=== PATIENT | male | born 1965 | race African-American/Black ===

== ENCOUNTER → 2016-09-01 | Outpatient (CLI) | payer BC | END | disposition home or self-care (01) | LOC: RADMRIMAIN 09:37 | PROVIDERS: ATTEND Psychiatry & Neurology Neurology | DX: Z53.9 Procedure and treatment not carried out, unspecified reason (principal) ==

== ENCOUNTER → 2016-10-04 | Outpatient (CLI) | payer BC ==
--- NOTE | 2016-10-04 10:21 | MR ---
EXAMINATION TYPE: MR lumbar spine wo con DATE OF EXAM: 10/04/2016 10:05 AM COMPARISON: NONE HISTORY: radiculopathy lsp, lumbago TECHNIQUE: T1 and T2 axial and sagittal images of the lumbar spine are submitted. FINDINGS: There is no abnormal signal seen within the visualized spinal cord or paraspinal soft tissu es. Subcentimeter right renal simple cyst noted. Suspect gallstones. At L1-2 there is no disc herniation or canal stenosis. No foraminal encroachment. At L2-3 there is no disc herniation or canal stenosis. No foraminal encroachment. At L3-4 there is no disc herniation or canal stenosis. No foraminal encroachment. At L4-5 there is central broad-based disc protrusion with mild effacement of thecal sac and mild marj l stenosis. Hypertrophy of the ligamentum flavum contributes. Mild bilateral foraminal encroachment. At L5-S1 there is no disc herniation or canal stenosis. No foraminal encroachment. IMPRESSION: 1. At L4-5 there is central broad-based disc protrusion with mild effacement of thecal sac and mild c anal stenosis. Hypertrophy of the ligamentum flavum contributes. Mild bilateral foraminal encroachmen t. 2. Correlate for gallstones.
== END ==
LOC: RADMRIMAIN 09:00
PROVIDERS: ATTEND Psychiatry & Neurology Neurology
DX: M51.16 Intervertebral disc disorders with radiculopathy, lumbar region (principal); M48.06 Spinal stenosis, lumbar region
CPT/HCPCS: 72148

== ENCOUNTER → 2018-06-05 | Outpatient (CLI) | payer OTHER ==
--- NOTE | 2018-06-05 16:17 | XR ---
EXAMINATION TYPE: XR lumbosacral spine min 4V DATE OF EXAM: 06/05/2018 CLINICAL HISTORY: pain COMPARISON: NONE TECHNIQUE: Frontal, lateral, and oblique images of the lumbar spine are obtained. FINDINGS: There are 5 lumbar type vertebral bodies identified. The lumbar spine shows satisfactory alignment without evidence of acute fracture or dislocation. Vertebral body heights are within normal limits. Disc spaces are well preserved. The overlying soft tissue appears unremarkable. IMPRESSION: No acute fracture or dislocation is seen in the lumbar spine.ICD 10 NO FRACTURE, INITIAL EVALUATION
== END | disposition home or self-care (01) ==
LOC: RADXRMAIN 15:29
PROVIDERS: ATTEND Family Medicine
DX: M54.5 Low back pain (principal)
CPT/HCPCS: 72110

== ENCOUNTER → 2018-09-07 | Outpatient (CLI) | payer SELFPAY ==
[2018-09-07 16:46] LABS: LDL Cholesterol,Calculated 56.6 mg/dL (0.0-131.0); VLDL Calculation 40.4 mg/dL (5.00-40.00)
[2018-09-07 16:54] LABS: T4, Free (Free Thyroxine) 1.1 ng/dL (0.80-1.80)
[2018-09-07 21:16] LABS: Hemoglobin A1C 5.9 % (4.0-6.0)
== END | disposition home or self-care (01) ==
LOC: LABWHC1 08:37
PROVIDERS: ATTEND Psychiatry & Neurology Psychiatry
DX: F25.1 Schizoaffective disorder, depressive type (principal)
CPT/HCPCS: 36415; 80061; 82947; 83036; 84439; 84443

== ENCOUNTER → 2021-03-09 | Outpatient (CLI) | payer OTHER ==
[2021-03-09 20:50] LABS: Basophils # (A) 0.03 X 10*3/uL (0.00-0.10); Basophils % (A) 0.6 %; Eosinophils # (A) 0.16 X 10*3/uL (0.04-0.35); Eosinophils % (A) 3.1 %; HCT 39.8 % (39.6-50.0); HGB 13.6 g/dL (13.0-17.0); Lymphocytes # (A) 2.03 X 10*3/uL (0.90-5.00); Lymphocytes % (A) 39.1 %; MCH 30.6 pg (27.0-32.0); MCHC 34.2 g/dL (32.0-37.0); MCV 89.6 fL (80.0-97.0); Mean Platelet Volume 10.7 fL (9.5-12.2); Monocytes # (A) 0.45 X 10*3/uL (0.20-1.00); Monocytes % (A) 8.7 %; Neutrophils # (A) 2.51 X 10*3/uL (1.80-7.70); Neutrophils % (A) 48.3 %; Platelet Count 258 X 10*3/uL (140-440); RBC 4.44 X 10*6/uL (4.40-5.60); RDW 14.2 % (11.5-14.5); WBC 5.19 X 10*3/uL (4.50-10.00)
[2021-03-10 00:54] LABS: African American GFR (CKD) 111.8 (60.0-200.0); Albumin 4.3 g/dL (3.80-4.90); Albumin/Globulin Ratio 1.87 (1.60-3.17); Anion Gap 9.4 mmol/L (4.00-12.00); BUN/Creat Ratio 13.33 Ratio (12.00-20.00); Calcium 9.2 mg/dL (8.7-10.3); Carbon Dioxide 20.6 mmol/L (21.6-31.8); Chol/HDL Ratio 1.75; Globulin 2.3 g/dL (1.6-3.3); LDL Cholesterol,Calculated 56.8 mg/dL (0.0-131.0); Non-African American GFR(CKD) 96.5 (60.0-200.0); Total Bilirubin 0.5 mg/dL (0.2-1.2); Total Protein 6.6 g/dL (6.2-8.2); VLDL Calculation 16.2 mg/dL (5.00-40.00)
[2021-03-10 01:04] LABS: T4, Free (Free Thyroxine) 1.3 ng/dL (0.80-1.80)
== END | disposition home or self-care (01) ==
LOC: LABWHC1 12:30
PROVIDERS: ATTEND Family Medicine
DX: Z00.00 Encounter for general adult medical examination without abnormal findings (principal); Z13.220 Encounter for screening for lipoid disorders; E78.5 Hyperlipidemia, unspecified; E55.9 Vitamin D deficiency, unspecified; R53.83 Other fatigue
CPT/HCPCS: 36415; 80053; 80061; 82306; 84439; 84443; 85025

== ENCOUNTER 2022-09-17 20:50 | Inpatient (IN) | payer OTHER, MEDICAID ==
--- NOTE | 2022-09-17 22:08 | ED ---
Psych HPI - General Chief Complaint: Psychiatric Symptoms Stated Complaint: suicidal Time Seen by Provider: 09/17/22 21:12 Source: patient Mode of arrival: ambulatory - History of Present Illness Initial Comments: Patient is a 57-year-old male who presents to the emergency department for suicidal thoughts. Patient reports suicidal ideation for several months. He denies any plan or intention. No homicidal ideation. No visual or auditory hallucinations. No alcohol or drug use. He denies fever, chills, chest pain, shortness of breath, abdominal pain, nausea, vomiting, burning with urination. - Related Data Home Medications Medication Instructions Recorded Confirmed No Known Home Medications 09/17/22 09/17/22 Allergies Allergy/AdvReac Type Severity Reaction Status Date / Time No Known Allergies Allergy Verified 09/17/22 21:22 Review of Systems ROS Statement: Those systems with pertinent positive or pertinent negative responses have been documented in the HPI. ROS Other: All systems not noted in ROS Statement are negative. Past Medical History Past Medical History: No Reported History History of Any Multi-Drug Resistant Organisms: None Reported Past Surgical History: No Surgical Hx Reported Past Psychological History: Anxiety, Bipolar, Depression Smoking Status: Current every day smoker Past Alcohol Use History: Occasional Past Drug Use History: None Reported - Past Family History Mother Family Medical History: Hypertension General Exam Limitations: no limitations General appearance: alert, in no apparent distress Head exam: Present: atraumatic, normocephalic, normal inspection Eye exam: Present: normal appearance, PERRL, EOMI. Absent: scleral icterus, conjunctival injection, periorbital swelling Neck exam: Present: normal inspection. Absent: tenderness, meningismus, lymphadenopathy Respiratory exam: Present: normal lung sounds bilaterally. Absent: respiratory distress, wheezes, rales, rhonchi, stridor Cardiovascular Exam: Present: regular rate, normal rhythm, normal heart sounds. Absent: systolic murmur, diastolic murmur, rubs, gallop, clicks Neurological exam: Present: oriented X3, CN II-XII intact Psychiatric exam: Present: normal affect, suicidal ideation Skin exam: Present: warm, dry, intact, normal color. Absent: rash Course Vital Signs 09/17/22 20:53 Temperature 97.9 F Pulse Rate 87 Respiratory 18 Rate Blood Pressure 150/104 O2 Sat by Pulse 98 Oximetry Medical Decision Making - Medical Decision Making Was pt. sent in by a medical professional or institution (SHAWN Husain, SWIMMING POOL SERVICE TECHNICIAN, urgent care, hospital, or group home...) When possible be specific @ -[No] Did you speak to anyone other than the patient for history (EMS, parent, family, police, friend...)? What history was obtained from this source @ -[No] Did you review nursing and triage notes (agree or disagree)? Why? @ -[I reviewed and agree with nursing and triage notes] Were old charts reviewed (outside hosp., previous admission, EMS record, old EKG, old radiological studies, urgent care reports/EKG's, group home records)? Report findings @ -[No old charts were reviewed] Differential Diagnosis (chest pain, altered mental status, abdominal pain women, abdominal pain men, vaginal bleeding, weakness, fever, dyspnea, syncope, heada livia, dizziness, GI bleed, back pain, seizure, CVA, palpatations, mental health)? @ -Differential Mental Health Depression, anxiety, bipolar, psychosis, schizophrenia, borderline personality, situational depression, adjustment disorder, behavioral disorder, brain tumor, malingering, substance abuse, encephalopathy, medication reaction, dementia, hypothyroidism, degenerative neurologic disorder, lupus.... This is not meant to be all-inclusive list EKG interpreted by me (3pts min.). @ -[As above] X-rays interpreted by me (1pt min.). @ -[None done] CT interpreted by me (1pt min.). @ -[None done] U/S interpreted by me (1pt. min.). @ -[None done] What testing was considered but not performed or refused? (CT, X-rays, U/S, labs)? Why? @ -[None] What meds were considered but not given or refused? Why? @ -[None] Did you discuss the management of the patient with other professionals (professionals i.e. SHAWN Husain, SWIMMING POOL SERVICE TECHNICIAN, lab, RT, psych nurse, elementary school social worker, internet marketing specialist, teacher, training officer, major case detective)? Give summary @ -[No] Was smoking cessation discussed for >3mins.? @ -[No] Was critical care preformed (if so, how long)? @ -[No] Were there social determinants of health that impacted care today? How? (Homelessness, low income, unemployed, alcoholism, drug addiction, transportation, low edu. Level, literacy, decrease access to med. care, care home, rehab)? @ -[No] Was there de-escalation of care discussed even if they declined (Discuss DNR or withdrawal of care, Hospice)? DNR status @ -[No] What co-morbidities impacted this encounter? (DM, HTN, Smoking, COPD, CAD, Cancer, CVA, ARF, Chemo, Hep., AIDS, mental health diagnosis, sleep apnea, morbid obesity)? @ -[None] Was patient admitted / discharged? Hospital course, mention meds given and route, prescriptions, significant lab abnormalities, going to OR and other pertinent info. @ -Patient presenting for suicidal ideation. Further workup including laboratory studies and imaging not indicated at this time. Blood alcohol is 0. Patient is cleared medically for EPS. Patient admitted to psychiatric unit for further evaluation and management. Undiagnosed new problem with uncertain prognosis? @ -[No] Drug Therapy requiring intensive monitoring for toxicity (Heparin, Nitro, Insulin, Cardizem)? @ -[No] Were any procedures done? @ -[No] Diagnosis/symptom? @ -suicidal thoughts Acute, or Chronic, or Acute on Chronic? @ -chronic Uncomplicated (without systemic symptoms) or Complicated (systemic symptoms)? @ -[default] Side effects of treatment? @ -[No] Exacerbation, Progression, or Severe Exacerbation? @ -[No] Poses a threat to life or bodily function? How? (Chest pain, [place], [place], pneumonia, PE, COPD, DKA, ARF, appy, cholecystitis, CVA, Diverticulitis, Homicidal, Suicidal, threat to staff... and all critical care pts) @ -[No] Dr. Winchester is my attending. - Lab Data Result diagrams: 09/18/22 10:34 09/18/22 10:34 Lab Results 09/18/22 Range/Units 00:00 Coronavirus (PCR) Not Detected (Not Detectd) Disposition Clinical Impression: Suicidal ideations Disposition: ADMITTED IP TO THIS HOSP
[2022-09-18] MEDS ORDERED: MAGNESIUM HYDROXIDE 2,400 MG/10 ML CUP PO PRN (03:30)
[2022-09-18] MEDS ORDERED: ACETAMINOPHEN TAB 325 MG TAB PO PRN (03:30)
[2022-09-18] MEDS ORDERED: MAG HYDROX/AL HYDROX/SIMETH 30 ML CUP PO PRN (03:30)
[2022-09-18] MEDS ORDERED: hydrOXYzine HCL 50 MG/ML 1 ML VIAL IM PRN (03:36)
[2022-09-18] MEDS ORDERED: haloperidoL 5 MG TAB PO PRN (03:36)
[2022-09-18] MEDS ORDERED: HALOPERIDOL LACTATE 5 MG/ML 1 ML VIAL IM PRN (03:36)
[2022-09-18] MEDS ORDERED: hydrOXYzine pamoate 25 MG CAP PO PRN (03:36)
[2022-09-18] MEDS ORDERED: NICOTINE 14MG/24HR PATCH TRANSDERM SCH (09:00)
[2022-09-18 11:07] LABS: Basophils # (A) 0.1 k/uL (0-0.2); Basophils % (A) 1 %; Eosinophils # (A) 0.3 k/uL (0-0.7); Eosinophils % (A) 6 %; HCT 47.2 % (39.0-53.0); HGB 15.3 gm/dL (13.0-17.5); Lymphocytes # (A) 1.7 k/uL (1.0-4.8); Lymphocytes % (A) 32 %; MCH 28.6 pg (25.0-35.0); MCHC 32.5 g/dL (31.0-37.0); Mean Platelet Volume 7.6; Monocytes # (A) 0.3 k/uL (0-1.0); Monocytes % (A) 5 %; Neutrophils # (A) 2.9 k/uL (1.3-7.7); Neutrophils % (A) 54 %; Platelet Count 264 k/uL (150-450); RBC 5.37 m/uL (4.30-5.90); RDW 14.8 % (11.5-15.5); WBC 5.5 k/uL (3.8-10.6)
[2022-09-18 11:25] LABS: ALT 24 U/L (4-49); AST 27 U/L (17-59); African American GFR (CKD) >90 (>60 ml/min/1.73 sqM); Albumin 4.1 g/dL (3.5-5.0); Alkaline Phosphatase 66 U/L (38-126); Anion Gap 4 mmol/L; Bilirubin, Delta 0.3 mg/dL (0.0-0.2); Blood Urea Nitrogen 16 mg/dL (9-20); Calcium 9.1 mg/dL (8.4-10.2); Carbon Dioxide 31 mmol/L (22-30); Chloride 105 mmol/L (98-107); Glucose 92 mg/dL (74-99); Non-African American GFR(CKD) 88 (>60 ml/min/1.73 sqM); Potassium 4.8 mmol/L (3.5-5.1); Sodium 140 mmol/L (137-145); Total Bilirubin 0.3 mg/dL (0.2-1.3); Total Protein 6.7 g/dL (6.3-8.2)
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
--- NOTE | 2022-09-18 18:32 | P.HPMEDMHU ---
History of Present Illness H&P Date: 09/18/22 Patient is a 57-year-old male admitted to the mental health unit for auditory hallucinations Patient seen and examined at bedside. He denies any prior medical history. He denies any history of thyroid dysfunction. He denies any recent illnesses such as cough, cold, fever, flu, nausea, vomiting, dysuria. Vital signs reviewed General: nontoxic, no distress, appears at stated age Derm: warm, dry Eyes: EOMI, no lid lag, anicteric sclera, pupils equal round reactive to light ENT: Nose and ears atraumatic, no thrush, no pharyngeal erythema Cardiovascular: S1S2 reg, no murmur, positive posterior tibial pulse bilateral, no edema, capillary refill less than 2 seconds Lungs: clear to auscultation bilateral, no rhonchi, no rales, no wheeze, no accessory muscle use Ext: no gross muscle atrophy, no contractures Neuro: CN II-XII grossly intact, light touch intact all 4 extremities Psych: Alert, oriented, appropriate affect Assessment: Depressed TSH Tobacco dependency Schizophrenia with depressive disorder Imaging: None to review Data Review: Laboratory analysis reviewed from 09/18/22. White blood cell count 5.5, hemoglobin 15.3, platelets 264, sodium 140, potassium 4.8, chloride 105, carbon dioxide 31, BUN 16, creatinine 0.97, bilirubin 0.3, TSH 0.344. COVID-19 not detected. Plan: -Check free T4 to eliminate thyroid dysfunction -Offered nicotine replacement patient declined -Psychiatry note reviewed: Admitted under voluntary status, started on noninvasive for psychosis. Thank you for allowing us to participate in the care of this pleasant patient. Do not hesitate to contact us with questions. Someone can be reached from the [facility] hospitalist group all hours of the day at [phone] or via [email or web address]. This dictation was prepared using [employer] voice recognition software. Though every attempt is made to correct errors during during dictation some may still exist. Past Medical History Past Medical History: No Reported History History of Any Multi-Drug Resistant Organisms: None Reported Past Surgical History: No Surgical Hx Reported Past Psychological History: Anxiety, Bipolar, Depression Smoking Status: Current every day smoker Past Alcohol Use History: Occasional Past Drug Use History: None Reported - Past Family History Mother Family Medical History: Hypertension Medications and Allergies Home Medications Medication Instructions Recorded Confirmed Type No Known Home Medications 09/17/22 09/17/22 History Allergies Allergy/AdvReac Type Severity Reaction Status Date / Time No Known Allergies Allergy Verified 09/17/22 21:22 Physical Exam Osteopathic Statement: *. No significant issues noted on an osteopathic structural exam other than those noted in the History and Physical/Consult. Vitals: Vital Signs Temp Pulse Pulse Resp BP BP Pulse Ox 09/18/22 04:59 97.1 F L 72 18 136/90 96 09/17/22 20:53 97.9 F 87 18 150/104 98 Intake and Output 09/18/22 09/18/22 09/18/22 06:59 14:59 22:59 Other: Weight 84.686 kg 84.1 kg Cranial Nerve Examination - Cranial Nerves Cranial Nerve II- Optic: Intact Cranial Nerve III- Oculomotor: Intact Cranial Nerve IV- Trochlear: Intact Cranial Nerve V- Trigeminal: Intact Cranial Nerve - Abducens: Intact Cranial Nerve VII- Facial: Intact Cranial Nerve VIII- Auditory: Intact Cranial Nerve IX- Glossopharyngeal: Intact Cranial Nerve X- Vagus: Intact Cranial Nerve XI- Accessory: Intact Cranial Nerve XII- Hypoglossal: Intact Results CBC & Chem 7: 09/18/22 10:34 09/18/22 10:34 Labs: Abnormal Lab Results - Last 24 Hours (Table) 09/18/22 Range/Units 10:34 Carbon Dioxide 31 H (22-30) mmol/L Delta Bilirubin 0.3 H (0.0-0.2) mg/dL TSH 0.344 L (0.465-4.680) mIU/L
[2022-09-18 19:00] LABS: LDL Cholesterol,Calculated 60.6 mg/dL (0.0-131.0)
[2022-09-18] MEDS: PALIPERIDONE 6 MG TAB.ER.24 PO SCH (20:54)
[2022-09-19 06:35] VITALS: TEMP 97.9
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
[2022-09-19] MEDS: PALIPERIDONE 6 MG TAB.ER.24 PO SCH (20:40)
[2022-09-20 06:40] VITALS: BP 110/66; PULSE 58; RESP 18
--- NOTE | 2022-09-20 11:00 | P.DS ---
Providers Date of admission: 09/18/22 03:17 Expected date of discharge: 09/20/22 Attending physician: David Christopher MD Consults: 09/18/22 03:30 Consult Physician Routine Consulting Provider: Pantera Cruz Consult Reason/Comments: History and Physical, medical management Do you want consulting provider notified?: Yes Primary care physician: Stated None - Discharge Diagnosis(es) (1) Schizoaffective disorder, depressive type Current Visit: Yes Status: Acute Priority: High (2) Nicotine dependence Current Visit: Yes Status: Chronic Priority: Low Hospital Course: Admission HPI: Initial psychiatric evaluation was completed by Dr. Grigsby on 09/18/2022 who wrote: "Patient is a single, unemployed, 57-year-old male who is presenting with psychosis. HPI: Patient has a history of schizophrenia, alcohol use, and cocaine use. He brought himself to the ED due to auditory hallucinations. Per report, patient also endorsed having suicidal ideation for the past 2 months that are worsening in the past 2 days. Patient was seen in the room this morning. He states that he has been having worsening auditory hallucinations over the past 2 months for which he wanted to seek help. He currently states that they are mumbling in nature and he is unable to make out what they are saying. He also states that he has been having racing thoughts but would not explain further. Patient provides brief responses to questions and is a poor historian. Although he endorsed command auditory hallucinations to kill himself while in the ED, patient currently denies this. He also says he is in a "really bad situation" but would not explain further. He was noted to be looking at the cameras in the room several times and becoming guarded when asked further questions regarding this. He denies trouble sleeping but would not say how hours he sleeps at baseline. He reports fair mood, but has endorsed low mood for the past 3-4 weeks to staff. He reports fair energy levels. He denies feeling anxious. He denies problems with appetite. He denies all recent substance use except drinking a couple beers 2-3 times a week. Patient currently denies suicidal and homicidal ideation, as asked and assessed. He endorses auditory hallucinations but denies visual hallucinations. Patient does appear to be paranoid although denies overt paranoia. PSYCH HX: Patient reports following with [facility] but reports not having seen them recently. He claims this was for housing. Past tx: Risperdal but cannot recall further details and denies taking any psychotropic medications recently. Hospitalizations: Denies NSSI: Denies SA: Denies" Hospital course: Upon admission to the unit patient was initially presenting as depressed with flat affect and minimal in conversation. Patient was however directable and agreeable to commence treatment. Patient got along well with other patients on [facility] unit and followed unit protocol. Patient was compliant with the medications and denied any side effects throughout hospital course. Patient was started on Invega 6 mg at bedtime for psychosis. Patient spoke of his stressors and engaged in therapy both group and individual. Patient was also seen by medical team for history and physical exam. Throughout the course of the hospitalization patient gradually improved with regards to his target psychotic symptoms, sleep, and became future oriented with improved insight and judgment. On the day of discharge, the patient is not reporting any suicidal or homicidal ideation, intention, and/or plan. He is not reporting any auditory or visual hallucinations. Patient endorsed wanting to live for his health and family. The patient denied any access to guns or weapons. Patient denied any paranoia and did not endorse any delusions. Patient does have a significant history of substance abuse however was counseled on abstaining from all substances including alcohol and marijuana. Patient was offered however declined inpatient substance-abuse rehab. Patient was also counseled on the medications and need for regular compliance and was encouraged to follow-up with their outpatient appointment for mental health and also for primary care. Prior to discharge a family meeting will be arranged by social media strategist to answer any questions and ensure safety upon discharge. The patient reports that he'll be staying with his sister upon discharge. He reports no medical issues or concerns. He denies any chest pain, SOB, palpitations, light-headedness. Mental status exam: General Appearance: Patient appears to be stated age is alert, pleasant, and cooperative. Patient is in no acute distress and has fair hygiene and grooming Behavior: Patient is calmly seated without any agitated behavior. Speech: Patient's speech is fluent and nonpressured. Mood/Affect: Patient reports their mood is "much better", affect is congruent and euthymic to bright. Suicidality/Homicidality: Patient denies having any suicidal or homicidal ideation intent or plan. Perceptions: Patient denies any auditory or visual hallucinations. Though content/process: There is no evidence of any delusional thought content and thought process is linear and goal-directed. Future and goal oriented. Memory and concentration: AOX3, grossly intact for the purposes of this session. Can spell "WORLD" backwards correctly. Judgment and insight: Improved with guarded prognosis Impression: Schizoaffective disorder, depressive type Nicotine dependence Plan: -Continue with discharge today as patient has improved and stabilized psychiatrically and is not currently an imminent threat to himself and/or others. Patient will remain at chronically elevated risk due to the severity of his mental illness and concerns for homelessness. -Continue medications: Invega 6 mg by mouth at bedtime for schizoaffective disorder -Patient was counseled on the need for medication compliance and appropriate follow-up at mental health and also primary care for medical issues. Patient verbalized understanding and agreed. -Social work to arrange for and conduct family meeting to ensure safety upon discharge and answer any questions/concerns. Social work also to arrange for patients follow up appointments with [facility] for psychiatric care along with follow up with primary care provider. -Patient counseled on abstaining from recreational drugs and marijuana and alcohol. Was informed/educated on the adverse effects on their physical and mental health. Patient verbally agreed and understood. -Patient was instructed to return to the hospital or seek immediate medical care if their psychiatric or medical symptoms do worsen or reoccur. -Psychoeducation and supportive therapy provided to patient. Risks and benefits of pharmacological treatment versus the risks and benefits of nontreatment weight and discussed. Informed consent discussion held. Common side effects of psychotropics discussed such as, but not limited to headache, GI disturbance, sexual dysfunction, movement disorders, sedation, and orthostatic hypotension. Life threatening and blackbox warnings of prescribed medications also discussed. Potential risks of operating a vehicle or heavy machinery discussed with patient at length. Advised on importance of compliance and a reliable and responsible manner. Patient advised to review FDA consumer labeling of all medications prior to taking. Patient verbalized understanding of potential risks, and agrees with current treatment plan. Patient advised to medically contact physician/emergency personnel if any acute changes in condition occur. Vital Signs Temp 97.9 F 09/20/22 06:39 Pulse 58 L 09/20/22 06:39 Resp 18 09/20/22 06:39 BP 110/66 09/20/22 06:39 Pulse Ox 98 09/20/22 06:39 FiO2 Laboratory Results WBC 5.5 k/uL (3.8-10.6) 09/18/22 10:34 RBC 5.37 m/uL (4.30-5.90) 09/18/22 10:34 Hgb 15.3 gm/dL (13.0-17.5) 09/18/22 10:34 Hct 47.2 % (39.0-53.0) 09/18/22 10:34 MCV 88.0 fL (80.0-100.0) 09/18/22 10:34 MCH 28.6 pg (25.0-35.0) 09/18/22 10:34 MCHC 32.5 g/dL (31.0-37.0) 09/18/22 10:34 RDW 14.8 % (11.5-15.5) 09/18/22 10:34 Plt Count 264 k/uL (150-450) 09/18/22 10:34 MPV 7.6 09/18/22 10:34 Neutrophils % 54 % 09/18/22 10:34 Lymphocytes % 32 % 09/18/22 10:34 Monocytes % 5 % 09/18/22 10:34 Eosinophils % 6 % 09/18/22 10:34 Basophils % 1 % 09/18/22 10:34 Neutrophils # 2.9 k/uL (1.3-7.7) 09/18/22 10:34 Lymphocytes # 1.7 k/uL (1.0-4.8) 09/18/22 10:34 Monocytes # 0.3 k/uL (0-1.0) 09/18/22 10:34 Eosinophils # 0.3 k/uL (0-0.7) 09/18/22 10:34 Basophils # 0.1 k/uL (0-0.2) 09/18/22 10:34 Sodium 140 mmol/L (137-145) 09/18/22 10:34 Potassium 4.8 mmol/L (3.5-5.1) 09/18/22 10:34 Chloride 105 mmol/L (98-107) 09/18/22 10:34 Carbon Dioxide 31 mmol/L (22-30) H 09/18/22 10:34 Anion Gap 4 mmol/L 09/18/22 10:34 BUN 16 mg/dL (9-20) 09/18/22 10:34 Creatinine 0.97 mg/dL (0.66-1.25) 09/18/22 10:34 Est GFR (CKD-EPI)AfAm >90 (>60 ml/min/1.73 sqM) 09/18/22 10:34 Est GFR (CKD-EPI)NonAf 88 (>60 ml/min/1.73 sqM) 09/18/22 10:34 Glucose 92 mg/dL (74-99) 09/18/22 10:[address] Glu mg/dL 132 09/18/22 10:34 Hemoglobin A1c 6.2 % (0.0-6.0) H 09/18/22 10:34 Calcium 9.1 mg/dL (8.4-10.2) 09/18/22 10:34 Total Bilirubin 0.3 mg/dL (0.2-1.3) 09/18/22 10:34 Conjugated Bilirubin 0.0 mg/dL (0.0-0.3) 09/18/22 10:34 Unconjugated Bilirubin 0.0 mg/dL (0.0-1.1) 09/18/22 10:34 Delta Bilirubin 0.3 mg/dL (0.0-0.2) H 09/18/22 10:34 AST 27 U/L (17-59) 09/18/22 10:34 ALT 24 U/L (4-49) 09/18/22 10:34 Alkaline Phosphatase 66 U/L (38-126) 09/18/22 10:34 Total Protein 6.7 g/dL (6.3-8.2) 09/18/22 10:34 Albumin 4.1 g/dL (3.5-5.0) 09/18/22 10:34 Triglycerides 143.00 mg/dL (0.00-149.00) 09/18/22 10:34 Cholesterol 153.00 mg/dL (0.00-200.00) 09/18/22 10:34 LDL Cholesterol, Calc 60.6 mg/dL (0.0-131.0) 09/18/22 10:34 VLDL Cholesterol, Calc 28.60 mg/dL (5.00-40.00) 09/18/22 10:34 HDL Cholesterol 63.80 mg/dL (40.00-60.00) H 09/18/22 10:34 Cholesterol/HDL Ratio 2.40 Ratio 09/18/22 10:34 TSH 0.344 mIU/L (0.465-4.680) L 09/18/22 10:34 Free T4 1.410 ng/dL (0.800-1.800) 09/18/22 10:34 Coronavirus (PCR) Not Detected (Not Detectd) 09/18/22 00:00 Allergies Allergy/AdvReac Type Severity Reaction Status Date / Time No Known Allergies Allergy Verified 09/17/22 21:22 Patient Condition at Discharge: Stable Plan - Discharge Summary Discharge Rx Participant: Yes New Discharge Prescriptions: New Paliperidone [Invega] 6 mg PO DAILY 15 Days #60 tab Discharge Medication List Paliperidone [Invega] 6 mg PO DAILY 15 Days #60 tab 09/20/22 [Rx] Follow up Appointment(s)/Referral(s): None,Stated [Primary Care Provider] - 1-2 days Activity/Diet/Wound Care/Special Instructions: Avoid the use of street drugs and alcohol. Take all medications as prescribed. When you are in need of refills on your medications, please contact your medical provider and/or outpatient psychiatrist to have this done. Please go to scheduled outpatient appointments for aftercare treatment. If symptoms return or become worse, call the crisis line at and/or go to the nearest emergency room for evaluation. Discharge Disposition: HOME SELF-CARE
== END 2022-09-20 11:45 | disposition home or self-care (01) | DRG 885 ==
LOC: EC 20:50 → 3MHU 09-18 03:17
PROVIDERS: ADMIT Psychiatry & Neurology Psychiatry; ATTEND Psychiatry & Neurology Psychiatry
DX: F25.1 Schizoaffective disorder, depressive type (principal); R45.851 Suicidal ideations; F14.11 Cocaine abuse, in remission; Z20.822 Contact with and (suspected) exposure to COVID-19; F10.11 Alcohol abuse, in remission; F17.210 Nicotine dependence, cigarettes, uncomplicated; Z71.6 Tobacco abuse counseling; Z56.0 Unemployment, unspecified; Z59.00 Homelessness unspecified; Z91.410 Personal history of adult physical and sexual abuse; Z71.41 Alcohol abuse counseling and surveillance of alcoholic; Z71.51 Drug abuse counseling and surveillance of drug abuser
CPT/HCPCS: 80053; 80061; 82075; 82248; 83036; 84439; 84443; 85025; 87635; 99285

== ENCOUNTER 2024-08-28 12:44 | Emergency (ER) | payer MEDICAID, OTHER ==
[2024-08-28 14:09] LABS: Basophils % (A) 0 %; Eosinophils # (A) 0.3 k/uL (0-0.7); Eosinophils % (A) 3 %; HCT 45.4 % (39.0-53.0); HGB 14.3 gm/dL (13.0-17.5); Lymphocytes # (A) 1.7 k/uL (1.0-4.8); Lymphocytes % (A) 15 %; MCH 28.7 pg (25.0-35.0); MCHC 31.5 g/dL (31.0-37.0); MCV 90.9 fL (80.0-100.0); Mean Platelet Volume 7.4; Monocytes # (A) 0.4 k/uL (0-1.0); Monocytes % (A) 4 %; Neutrophils # (A) 8.8 k/uL (1.3-7.7); Neutrophils % (A) 77 %; Platelet Count 282 k/uL (150-450); RDW 14.6 % (11.5-15.5); WBC 11.4 k/uL (3.8-10.6)
[2024-08-28] MEDS: HYDROmorphone 0.5 MG/0.5 ML SYRINGE IVP STA (14:13)
--- NOTE | 2024-08-28 14:15 | ED ---
Abdominal Pain HPI - General Chief Complaint: Abdominal Pain Stated Complaint: poss hernia Time Seen by Provider: 08/28/24 12:51 Source: patient, RN notes reviewed Mode of arrival: ambulatory Limitations: no limitations - History of Present Illness Initial Comments: 59-year-old male presents emergency department chief complaint of left groin pain. Patient states started abruptly this morning denies any trauma denies any notable swelling states he has pain in his groin denies any testicular pain or dysuria denies any history hernia no prior abdominal surgeries no change in bowel habits no other complaints - Related Data Previous Rx's Medication Instructions Recorded risperiDONE [RisperDAL] 3 mg PO HS 30 Days #30 tablet 09/20/22 Ciprofloxacin HCl [Cipro] 500 mg PO Q12HR #20 tablet 08/28/24 Allergies Allergy/AdvReac Type Severity Reaction Status Date / Time No Known Allergies Allergy Verified 09/17/22 21:22 Review of Systems ROS Statement: Those systems with pertinent positive or pertinent negative responses have been documented in the HPI. ROS Other: All systems not noted in ROS Statement are negative. Past Medical History Past Medical History: No Reported History History of Any Multi-Drug Resistant Organisms: None Reported Past Surgical History: No Surgical Hx Reported Past Psychological History: Anxiety, Bipolar, Depression Smoking Status: Current every day smoker Past Alcohol Use History: Occasional Past Drug Use History: None Reported - Past Family History Mother Family Medical History: Hypertension General Exam Limitations: no limitations General appearance: alert, in no apparent distress Head exam: Present: atraumatic, normocephalic, normal inspection Eye exam: Present: normal appearance, PERRL, EOMI. Absent: scleral icterus, conjunctival injection, periorbital swelling ENT exam: Present: normal exam, normal oropharynx, mucous membranes moist Neck exam: Present: normal inspection. Absent: tenderness, meningismus, lymphadenopathy Respiratory exam: Present: normal lung sounds bilaterally. Absent: respiratory distress, wheezes, rales, rhonchi, stridor Cardiovascular Exam: Present: regular rate, normal rhythm, normal heart sounds. Absent: systolic murmur, diastolic murmur, rubs, gallop, clicks GI/Abdominal exam: Present: soft, tenderness (Left inguinal), normal bowel sounds. Absent: distended, guarding, rebound, rigid Back exam: Absent: CVA tenderness (R), CVA tenderness (L) Course Vital Signs 08/28/24 12:59 Temperature 99.0 F Pulse Rate 98 Respiratory 17 Rate Blood Pressure 165/90 O2 Sat by Pulse 100 Oximetry Medical Decision Making - Medical Decision Making Was pt. sent in by a medical professional or institution (, [facility], [facility] [facility], urgent care, hospital, or custodial...) When possible be specific @ -No Did you speak to anyone other than the patient for history (EMS, parent, family, police, friend...)? What history was obtained from this source @ -No Did you review nursing and triage notes (agree or disagree)? Why? @ -I reviewed and agree with nursing and triage notes Were old charts reviewed (outside hosp., previous admission, EMS record, old EKG, old radiological studies, urgent care reports/EKG's, custodial records)? Report findings @ -No old charts were reviewed Differential Diagnosis (chest pain, altered mental status, abdominal pain women, abdominal pain men, vaginal bleeding, weakness, fever, dyspnea, syncope, headache, dizziness, GI bleed, back pain, seizure, CVA, palpatations, mental he alth, musculoskeletal)? @ -Differential Abdominal Pain Men: Appendicitis, cholecystitis, diverticulosis, ischemic bowel, pancreatitis, hepatitis, UTI, gastroenteritis, AAA, incarcerated hernia, bowel obstruction, constipation, inflammatory bowel, hepatitis, peptic ulcer disease, splenic infarction, perforated viscus, testicular torsion, this is not meant to be an all-inclusive list EKG interpreted by me (3pts min.). @ -[None X-rays interpreted by me (1pt min.). @ -None done CT interpreted by me (1pt min.). @ -CT abdomen pelvis showing no acute intra-abdominal process U/S interpreted by me (1pt. min.). @ -None done What testing was considered but not performed or refused? (CT, X-rays, U/S, labs)? Why? @ -None What meds were considered but not given or refused? Why? @ -None Did you discuss the management of the patient with other professionals (professionals i.e. [facility] Husain, [employer], lab, RT, psych nurse, social media coordinator, factory clerk, teacher, community resource officer, case management manager)? Give summary @ -No Was smoking cessation discussed for >3mins.? @ -No Was critical care preformed (if so, how long)? @ -No Were there social determinants of health that impacted care today? How? (Homelessness, low income, unemployed, alcoholism, drug addiction, transportation, low edu. Level, literacy, decrease access to med. care, [facility], rehab)? @ -No Was there de-escalation of care discussed even if they declined (Discuss DNR or withdrawal of care, Hospice)? DNR status @ -No What co-morbidities impacted this encounter? (DM, HTN, Smoking, COPD, CAD, Cancer, CVA, ARF, Chemo, Hep., AIDS, mental health diagnosis, sleep apnea, morbid obesity)? @ -None Was patient admitted / discharged? Hospital course, mention meds given and route, prescriptions, significant lab abnormalities, going to OR and other pertinent info. @ -Discharged patient has evidence of UTI is concerning for possible STI versus epididymitis though he does not have any significant testicular pain patient started on Rocephin and azithromycin and ciprofloxacin. Patient discharged in stable condition. Undiagnosed new problem with uncertain prognosis? @ -No Drug Therapy requiring intensive monitoring for toxicity (Heparin, Nitro, Insulin, Cardizem)? @ -No Were any procedures done? @ -No Diagnosis/symptom? @UTI, groin pain Acute, or Chronic, or Acute on Chronic? @ -Acute Uncomplicated (without systemic symptoms) or Complicated (systemic symptoms)? @ -Uncomplicated Side effects of treatment? @ -No Exacerbation, Progression, or Severe Exacerbation? @ -No Poses a threat to life or bodily function? How? (Chest pain, [place], [place], pneumonia, PE, COPD, DKA, ARF, appy, cholecystitis, CVA, Diverticulitis, Homicidal, Suicidal, threat to staff... and all critical care pts) @ -No - Lab Data Result diagrams: 08/28/24 13:59 08/28/24 13:59 Lab Results 08/28/24 08/28/24 08/28/24 Range/Units 13:59 13:59 13:59 WBC 11.4 H (3.8-10.6) k/uL RBC 5.00 (4.30-5.90) m/uL Hgb 14.3 (13.0-17.5) gm/dL Hct 45.4 (39.0-53.0) % MCV 90.9 (80.0-100.0) fL MCH 28.7 (25.0-35.0) pg MCHC 31.5 (31.0-37.0) g/dL RDW 14.6 (11.5-15.5) % Plt Count 282 (150-450) k/uL MPV 7.4 Neutrophils % 77 % Lymphocytes % 15 % Monocytes % 4 % Eosinophils % 3 % Basophils % 0 % Neutrophils # 8.8 H (1.3-7.7) k/uL Lymphocytes # 1.7 (1.0-4.8) k/uL Monocytes # 0.4 (0-1.0) k/uL Eosinophils # 0.3 (0-0.7) k/uL Basophils # 0.0 (0-0.2) k/uL Sodium 137 (137-145) mmol/L Potassium 4.4 (3.5-5.1) mmol/L Chloride 103 (98-107) mmol/L Carbon Dioxide 23 (22-30) mmol/L Anion Gap 11 mmol/L BUN 11 (9-20) mg/dL Creatinine 0.84 (0.66-1.25) mg/dL Est GFR (CKD-EPI)AfAm >90 (>60 ml/min/1.73 sqM) Est GFR (CKD-EPI)NonAf >90 (>60 ml/min/1.73 sqM) Glucose 112 H (74-99) mg/dL Plasma Lactic Acid Thor 1.3 (0.7-2.0) mmol/L Calcium 9.6 (8.4-10.2) mg/dL Total Bilirubin 0.6 (0.2-1.3) mg/dL AST 48 (17-59) U/L ALT 67 H (4-49) U/L Alkaline Phosphatase 119 (38-126) U/L Total Protein 7.4 (6.3-8.2) g/dL Albumin 4.5 (3.5-5.0) g/dL Urine Color Urine Appearance (Clear) Urine pH (5.0-8.0) Ur Specific [place] (1.001-1.035) Urine Protein (Negative) Urine Glucose (UA) (Negative) Urine Ketones (Negative) Urine Blood (Negative) Urine Nitrite (Negative) Urine Bilirubin (Negative) Urine Urobilinogen (<2.0) mg/dL Ur Leukocyte Esterase (Negative) Urine RBC (0-5) /hpf Urine WBC (0-5) /hpf Urine Mucus (None) /hpf 08/28/24 Range/Units 14:16 WBC (3.8-10.6) k/uL RBC (4.30-5.90) m/uL Hgb (13.0-17.5) gm/dL Hct (39.0-53.0) % MCV (80.0-100.0) fL MCH (25.0-35.0) pg MCHC (31.0-37.0) g/dL RDW (11.5-15.5) % Plt Count (150-450) k/uL MPV Neutrophils % % Lymphocytes % % Monocytes % % Eosinophils % % Basophils % % Neutrophils # (1.3-7.7) k/uL Lymphocytes # (1.0-4.8) k/uL Monocytes # (0-1.0) k/uL Eosinophils # (0-0.7) k/uL Basophils # (0-0.2) k/uL Sodium (137-145) mmol/L Potassium (3.5-5.1) mmol/L Chloride (98-107) mmol/L Carbon Dioxide (22-30) mmol/L Anion Gap mmol/L BUN (9-20) mg/dL Creatinine (0.66-1.25) mg/dL Est GFR (CKD-EPI)AfAm (>60 ml/min/1.73 sqM) Est GFR (CKD-EPI)NonAf (>60 ml/min/1.73 sqM) Glucose (74-99) mg/dL Plasma Lactic Acid Thor (0.7-2.0) mmol/L Calcium (8.4-10.2) mg/dL Total Bilirubin (0.2-1.3) mg/dL AST (17-59) U/L ALT (4-49) U/L Alkaline Phosphatase (38-126) U/L Total Protein (6.3-8.2) g/dL Albumin (3.5-5.0) g/dL Urine Color Colorless Urine Appearance Cloudy (Clear) Urine pH 6.5 (5.0-8.0) Ur Specific [place] 1.014 (1.001-1.035) Urine Protein Negative (Negative) Urine Glucose (UA) Negative (Negative) Urine Ketones Negative (Negative) Urine Blood Small H (Negative) Urine Nitrite Negative (Negative) Urine Bilirubin Negative (Negative) Urine Urobilinogen <2.0 (<2.0) mg/dL Ur Leukocyte Esterase Large H (Negative) Urine RBC 15 H (0-5) /hpf Urine WBC 111 H (0-5) /hpf Urine Mucus Rare H (None) /hpf Disposition Clinical Impression: UTI (urinary tract infection), Left groin pain Disposition: HOME SELF-CARE Condition: Stable Instructions (If sedation given, give patient instructions): Urinary Tract Infection in Men (ED), Testicle Pain (ED) Additional Instructions: Please return to the Emergency Department if symptoms worsen or any other concerns. Prescriptions: Ciprofloxacin HCl [Cipro] 500 mg PO Q12HR #20 tablet Is patient prescribed a controlled substance at d/c from ED?: No Referrals: None,Stated [Primary Care Provider] - 1-2 days Time of Disposition: 15:20
[2024-08-28 14:23] LABS: ALT 67 U/L (4-49); AST 48 U/L (17-59); African American GFR (CKD) >90 (>60 ml/min/1.73 sqM); Albumin 4.5 g/dL (3.5-5.0); Alkaline Phosphatase 119 U/L (38-126); Anion Gap 11 mmol/L; Blood Urea Nitrogen 11 mg/dL (9-20); Calcium 9.6 mg/dL (8.4-10.2); Carbon Dioxide 23 mmol/L (22-30); Chloride 103 mmol/L (98-107); Glucose 112 mg/dL (74-99); Non-African American GFR(CKD) >90 (>60 ml/min/1.73 sqM); Potassium 4.4 mmol/L (3.5-5.1); Sodium 137 mmol/L (137-145); Total Bilirubin 0.6 mg/dL (0.2-1.3); Total Protein 7.4 g/dL (6.3-8.2)
--- NOTE | 2024-08-28 14:54 | CT ---
EXAMINATION TYPE: CT abdomen pelvis w con DATE OF EXAM: 08/28/2024 COMPARISON: None CLINICAL INDICATION: Male, 59 years old with history of left groin pain; PHH, left groin pain TECHNIQUE: Performed without Oral Contrast and with IV Contrast, patient injected with 80ml mL of Isovue 300. CT DLP: 772.[address] CTDI: mGy Automated exposure control for dose reduction was used. FINDINGS: The lung bases are clear. The gallbladder is normal without distention, wall thickening, pericholecystic fluid or gallstones. T here is no biliary ductal dilatation. There is no focal mass or organomegaly involving the liver, pancreas, spleen or adrenal glands. There is no solid renal mass or hydronephrosis and there is homogeneous contrast enhancement of the r enal parenchyma. The caliber the abdominal aorta is normal is no retroperitoneal adenopathy or hemorr isabelle. The bowel loops are normal in caliber and there is no evidence of dilatation or obstruction. No infla mmatory changes are identified in the bowel wall or mesentery. There is no free intraperitoneal air or fluid. No pelvic mass, free fluid, abscess or adenopathy. There is moderate prostatic hypertrophy. The osseous structures and soft tissues are intact. IMPRESSION: Moderate prostatic hypertrophy with no other significant abnormality seen. [facility], , 08/28/2024 2:51 PM
[2024-08-28 15:09] LABS: Appearance,Urine Cloudy (Clear); Bilirubin,Urine Negative (Negative); Blood,Urine Small (Negative); Color,Urine Colorless; Glucose,Urine (UA) Negative (Negative); Ketones,Urine Negative (Negative); Leukocyte Esterase,Urine Large (Negative); Mucus,Urine Rare /hpf; Nitrite,Urine Negative (Negative); PH, Urine 6.5 (5.0-8.0); Protein,Urine Negative (Negative); RBC,Urine 15 /hpf (0-5); Specific Gravity,Urine 1.014 (1.001-1.035); Urobilinogen,Urine <2.0 mg/dL (<2.0); WBC,Urine 111 /hpf (0-5)
[2024-08-28] MEDS: cefTRIAXone IN SWFI 1,000 MG/10 ML SYRINGE IVP STA (15:30)
[2024-08-28] MEDS: AZITHROMYCIN 500 MG TAB PO STA (15:35)
[2024-08-28] MEDS: ACET/COD 300 MG/30 MG STARTER PACK 6 TAB BTL PO STA (15:35)
[2024-08-28 15:40] VITALS: BP 149/87; PULSE 89; RESP 18; TEMP 98.4
== END 2024-08-28 15:40 | disposition home or self-care (01) ==
LOC: EC 12:44
DX: N39.0 Urinary tract infection, site not specified (principal); F17.200 Nicotine dependence, unspecified, uncomplicated
CPT/HCPCS: 36415; 80053; 83605; 85025; 81001; 74177; 99284; 96374; 96375; J0696; J1171; Q9967

== ENCOUNTER 2024-10-10 10:38 | Emergency (ER) | payer OTHER ==
[2024-10-10 10:59] VITALS: BP 160/83; PULSE 82; RESP 24; TEMP 97.8
--- NOTE | 2024-10-10 11:19 | ED ---
Abdominal Pain HPI - General Source: patient, RN notes reviewed Mode of arrival: wheelchair Limitations: no limitations <Ruel Acevedo - Last Filed: 10/10/24 11:17> <Micheal Winchester - Last Filed: 10/10/24 15:21> - General Chief Complaint: Abdominal Pain Stated Complaint: abd pain Time Seen by Provider: 10/10/24 10:53 - History of Present Illness Initial Comments: Quick note: This is a 59-year-old male presenting with mid abdominal pain (04/11) x 3 days. Patient states pain is sharp and nonradiating with associated nausea. Patient endorses EtOH use for the past 2 days after recent release from [facility]. Also endorses right tooth pain. Denies fever, chills, chest pain, dyspnea, vomiting, diarrhea (Ruel Acevedo) Dictation was produced using [employer] dictation software. please excuse any grammatical, word or spelling errors. Chief Complaint: 59-year-old male presents with abdominal pain History of Present Illness: 59-year-old male with no significant morbidities presents to the ER for abdominal pain. Patient states that it is epigastric and periumbilical. Patient states he feels nausea but no vomiting. Does drink regularly. Patient [place] any fever chills or night sweats. No diarrhea. Denies any history of abdominal surgery. The ROS documented in this emergency department record has been reviewed and confirmed by me. Those systems with pertinent positive or negative responses have been documented in the HPI. All other systems are other negative and/or noncontributory. (Micheal Winchester) - Related Data Previous Rx's Medication Instructions Recorded risperiDONE [RisperDAL] 3 mg PO HS 30 Days #30 tablet 09/20/22 Ciprofloxacin HCl [Cipro] 500 mg PO Q12HR #20 tablet 08/28/24 Omeprazole [PriLOSEC] 40 mg PO DAILY 24 Days #24 cap 10/10/24 Allergies Allergy/AdvReac Type Severity Reaction Status Date / Time No Known Allergies Allergy Verified 10/10/24 10:59 Review of Systems ROS Other: All systems not noted in ROS Statement are negative. <Ruel Acevedo - Last Filed: 10/10/24 11:17> ROS Other: All systems not noted in ROS Statement are negative. <Micheal Winchester - Last Filed: 10/10/24 15:21> ROS Statement: Those systems with pertinent positive or pertinent negative responses have been documented in the HPI. Past Medical History Past Medical History: No Reported History History of Any Multi-Drug Resistant Organisms: None Reported Past Surgical History: No Surgical Hx Reported Past Psychological History: Anxiety, Bipolar, Depression Smoking Status: Current every day smoker Past Alcohol Use History: Daily Past Drug Use History: Marijuana - Past Family History Mother Family Medical History: Hypertension <Ruel Acevedo - Last Filed: 10/10/24 11:17> General Exam Limitations: no limitations <Ruel Acevedo - Last Filed: 10/10/24 11:17> <Micheal Winchester - Last Filed: 10/10/24 15:21> - General Exam Comments Initial Comments: Visual Physical Exam Vital signs reviewed General: Well-appearing, nontoxic. Patient appears distressed. Head: Normocephalic, atraumatic Eyes: PERRLA, EOMI ENT: Airway patent Chest: Nonlabored breathing Skin: No visual rash, normal skin tone Neuro: Alert and oriented 3 Musculoskeletal: No gross abnormalities (Ruel Acevedo) PHYSICAL EXAM: General Impression: Alert and oriented x3, not in acute distress HEENT: Normocephalic atraumatic, extra-ocular movements intact, pupils equal and reactive to light bilaterally, mucous membranes moist. Cardiovascular: Heart regular rate and rhythm Chest: Able to complete full sentences, no retractions, no tachypnea Abdomen: abdomen soft, mild periumbilical tenderness, mild tenderness at McBurney's point, negative Hayden sign r, non-distended, no organomegaly Musculoskeletal: Pulses present and equal in all extremities, no peripheral edema Motor: no focal deficits noted Neurological: CN II-XII grossly intact, no focal motor or sensory deficits noted Skin: Intact with no visualized rashes Psych: Normal affect and mood (Micheal Winchester) Course Vital Signs 10/10/24 10:55 Temperature 97.8 F Pulse Rate 82 Respiratory 24 Rate Blood Pressure 160/83 O2 Sat by Pulse 99 Oximetry Medical Decision Making <Ruel Acevedo - Last Filed: 10/10/24 11:17> - Lab Data Result diagrams: 10/10/24 12:36 10/10/24 12:36 <Héctor Winchestersszhane Escalona - Last Filed: 10/10/24 15:21> - Medical Decision Making I completed the quick note portion of this chart signed GANGA Brody (Ruel Acevedo) Was pt. sent in by a medical professional or institution (SHAWN Husain, EMERGENCY MAN, urgent care, hospital, or skilled nursing...) When possible be specific @ -No Did you speak to anyone other than the patient for history (EMS, parent, family, police, friend...)? What history was obtained from this source @ -No Did you review nursing and triage notes (agree or disagree)? Why? @ -I reviewed and agree with nursing and triage notes Were old charts reviewed (outside hosp., previous admission, EMS record, old EKG, old radiological studies, urgent care reports/EKG's, skilled nursing records)? Report findings @ -No old charts were reviewed Differential Diagnosis (chest pain, altered mental status, abdominal pain women, abdominal pain men, vaginal bleeding, musculoskeletal, weakness, fever, dyspnea, syncope, headache, dizziness, GI bleed, back pain, seizure, CVA, palpatations, mental health)? @ -Differential Abdominal Pain Men: Appendicitis, cholecystitis, diverticulosis, ischemic bowel, pancreatitis, hepatitis, UTI, gastroenteritis, AAA, incarcerated hernia, bowel obstruction, constipation, inflammatory bowel, hepatitis, peptic ulcer disease, splenic infarction, perforated viscus, testicular torsion, this is not meant to be an all-inclusive list EKG interpreted by me (3pts min.). @ -None done X-rays interpreted by me (1pt min.). @ -KUB is unremarkable CT interpreted by me (1pt min.). @ -CT abdomen pelvis shows duodenitis U/S interpreted by me (1pt. min.). @ -None done What testing was considered but not performed or refused? (CT, X-rays, U/S, labs)? Why? @ -None What meds were considered but not given or refused? Why? @ -None Was smoking cessation discussed for >3mins.? @ -No Were there social determinants of health that impacted care today? How? (Home lessness, low income, unemployed, alcoholism, drug addiction, transportation, low edu. Level, literacy, decrease access to med. care, prison, rehab)? @ -No Was there de-escalation of care discussed even if they declined (Discuss DNR or withdrawal of care, Hospice)? DNR status @ -No What co-morbidities impacted this encounter? (DM, HTN, Smoking, COPD, CAD, Cancer, CVA, ARF, Chemo, Hep., AIDS, mental health diagnosis, sleep apnea, morbid obesity)? @ -Alcohol abuse Was patient admitted / discharged? Hospital course, mention meds given and route, prescriptions, significant lab abnormalities, going to OR and other pertinent info. @ -59-year-old male presents to the emergency department for abdominal pain. Patient is alcoholic. He has mild palpatory linn tenderness to the epigastrium. Tolerating oral intake. Labs are unremarkable. CT shows duodenitis. Patient can Protonix. Patient will be discharged given referral to GI specialist and prescription for omeprazole Did you discuss the management of the patient with other professionals (professionals i.e. , PA, EMERGENCY MAN, lab, RT, psych nurse, social insurance analyst, commercial construction superintendent, teacher, licensed mortgage loan officer, correctional counselor/case manager)? Give summary @ -No Was critical care preformed (if so, how long)? @ -No Undiagnosed new problem with uncertain prognosis? @ -No Drug Therapy requiring intensive monitoring for toxicity (Heparin, Nitro, Insulin, Cardizem)? @ -No Were any procedures done? @ -No Diagnosis/symptom? Acute, or Chronic, or Acute on Chronic? Uncomplicated (without systemic symptoms) or Complicated (systemic symptoms)? @ -Duodenitis Side effects of treatment? @ -No Exacerbation, Progression, or Severe Exacerbation? @ -No Poses a threat to life or bodily function? How? (Chest pain, [place], [place], pneumonia, PE, COPD, DKA, ARF, appy, cholecystitis, CVA, Diverticulitis, Homicidal, Suicidal, threat to staff... and all critical care pts) @ -No (Micheal Winchester) - Lab Data Lab Results 10/10/24 10/10/24 10/10/24 Range/Units 12:36 12:36 12:36 WBC 8.98 (4.50-10.00) 10*3/uL RBC 5.10 (4.40-5.60) 10*6/uL Hgb 14.9 (13.0-17.0) g/dL Hct 43.2 (39.6-50.0) % MCV 84.7 (80.0-97.0) fL MCH 29.2 (27.0-32.0) pg MCHC 34.5 (32.0-37.0) g/dL Plt Count 247 (140-440) 10*3/uL MPV 10.0 (9.5-12.2) fL Immature Gran % (Auto) 0.2 % Neutrophils % 70.3 % Lymphocytes % 22.3 % Monocytes % 5.7 % Eosinophils % 1.2 % Basophils % 0.3 % Immature Gran # 0.02 (0.00-0.04) 10*3/uL Neutrophils # 6.31 (1.80-7.70) 10*3/uL Lymphocytes # 2.00 (0.90-5.00) 10*3/uL Monocytes # 0.51 (0.20-1.00) 10*3/uL Eosinophils # 0.11 (0.04-0.35) 10*3/uL Basophils # 0.03 (0.00-0.10) 10*3/uL Sodium 138 (137-145) mmol/L Potassium 4.4 (3.5-5.1) mmol/L Chloride 103 (98-107) mmol/L Carbon Dioxide 27 (22-30) mmol/L Anion Gap 8 mmol/L BUN 19 (9-20) mg/dL Creatinine 0.82 (0.66-1.25) mg/dL Est GFR (CKD-EPI)AfAm >90 (>60 ml/min/1.73 sqM) Est GFR (CKD-EPI)NonAf >90 (>60 ml/min/1.73 sqM) Glucose 104 H (74-99) mg/dL Plasma Lactic Acid Thor 1.2 (0.7-2.0) mmol/L Calcium 9.6 (8.4-10.2) mg/dL Total Bilirubin 0.9 (0.2-1.3) mg/dL AST 53 (17-59) U/L ALT 72 H (4-49) U/L Alkaline Phosphatase 90 (38-126) U/L Total Protein 7.6 (6.3-8.2) g/dL Albumin 4.8 (3.5-5.0) g/dL Lipase 84 (23-300) U/L Influenza Type A (PCR) (Not Detectd) Influenza Type B (PCR) (Not Detectd) RSV (PCR) (Not Detectd) SARS-CoV-2 (PCR) (Not Detectd) 10/10/24 Range/Units 12:36 WBC (4.50-10.00) 10*3/uL RBC (4.40-5.60) 10*6/uL Hgb (13.0-17.0) g/dL Hct (39.6-50.0) % MCV (80.0-97.0) fL MCH (27.0-32.0) pg MCHC (32.0-37.0) g/dL Plt Count (140-440) 10*3/uL MPV (9.5-12.2) fL Immature Gran % (Auto) % Neutrophils % % Lymphocytes % % Monocytes % % Eosinophils % % Basophils % % Immature Gran # (0.00-0.04) 10*3/uL Neutrophils # (1.80-7.70) 10*3/uL Lymphocytes # (0.90-5.00) 10*3/uL Monocytes # (0.20-1.00) 10*3/uL Eosinophils # (0.04-0.35) 10*3/uL Basophils # (0.00-0.10) 10*3/uL Sodium (137-145) mmol/L Potassium (3.5-5.1) mmol/L Chloride (98-107) mmol/L Carbon Dioxide (22-30) mmol/L Anion Gap mmol/L BUN (9-20) mg/dL Creatinine (0.66-1.25) mg/dL Est GFR (CKD-EPI)AfAm (>60 ml/min/1.73 sqM) Est GFR (CKD-EPI)NonAf (>60 ml/min/1.73 sqM) Glucose (74-99) mg/dL Plasma Lactic Acid Thor (0.7-2.0) mmol/L Calcium (8.4-10.2) mg/dL Total Bilirubin (0.2-1.3) mg/dL AST (17-59) U/L ALT (4-49) U/L Alkaline Phosphatase (38-126) U/L Total Protein (6.3-8.2) g/dL Albumin (3.5-5.0) g/dL Lipase (23-300) U/L Influenza Type A (PCR) Not Detected (Not Detectd) Influenza Type B (PCR) Not Detected (Not Detectd) RSV (PCR) Not Detected (Not Detectd) SARS-CoV-2 (PCR) Not Detected (Not Detectd) Disposition <Ruel Acevedo - Last Filed: 10/10/24 11:17> Is patient prescribed a controlled substance at d/c from ED?: No Time of Disposition: 15:21 <Micheal Winchester - Last Filed: 10/10/24 15:21> Clinical Impression: Duodenitis Disposition: HOME SELF-CARE Condition: Fair Instructions (If sedation given, give patient instructions): Duodenitis (ED) Prescriptions: Omeprazole [PriLOSEC] 40 mg PO DAILY 24 Days #24 cap Referrals: Lila Hernandez MD [STAFF PHYSICIAN] - 1-2 days
[2024-10-10 12:43] LABS: Basophils # (A) 0.03 10*3/uL (0.00-0.10); Basophils % (A) 0.3 %; Eosinophils # (A) 0.11 10*3/uL (0.04-0.35); Eosinophils % (A) 1.2 %; HCT 43.2 % (39.6-50.0); HGB 14.9 g/dL (13.0-17.0); Lymphocytes % (A) 22.3 %; MCH 29.2 pg (27.0-32.0); MCHC 34.5 g/dL (32.0-37.0); MCV 84.7 fL (80.0-97.0); Monocytes # (A) 0.51 10*3/uL (0.20-1.00); Monocytes % (A) 5.7 %; Neutrophils # (A) 6.31 10*3/uL (1.80-7.70); Neutrophils % (A) 70.3 %; Platelet Count 247 10*3/uL (140-440); RDW 13.1 % (11.5-14.5); WBC 8.98 10*3/uL (4.50-10.00)
[2024-10-10] MEDS: ONDANSETRON 4 MG/2 ML VIAL IVP STA (12:44)
[2024-10-10] MEDS: MORPHINE SULFATE 4 MG/ML SYRINGE IV STA ×2 (12:45→13:38)
--- NOTE | 2024-10-10 13:05 | XR ---
EXAMINATION TYPE: XR KUB DATE OF EXAM: 10/10/2024 1:00 PM CLINICAL INDICATION: Male, 59 years old with history of abdominal pain, pain TECHNIQUE: To upright views of the abdomen. COMPARISON: CT abdomen and pelvis August 28, 2024. FINDINGS: Scattered gas is seen in non-distended small and large bowel loops. There is no visceromega ly, pneumoperitoneum, or abnormal calcification appreciated. The lung bases are clear. Moderate narro wing of both hip joints is present. IMPRESSION: Overall nonobstructive bowel gas pattern. [facility], , 10/10/2024 1:02 PM
[2024-10-10 13:13] LABS: ALT 72 U/L (4-49); AST 53 U/L (17-59); African American GFR (CKD) >90 (>60 ml/min/1.73 sqM); Albumin 4.8 g/dL (3.5-5.0); Alkaline Phosphatase 90 U/L (38-126); Anion Gap 8 mmol/L; Blood Urea Nitrogen 19 mg/dL (9-20); Calcium 9.6 mg/dL (8.4-10.2); Carbon Dioxide 27 mmol/L (22-30); Chloride 103 mmol/L (98-107); Glucose 104 mg/dL (74-99); Lipase 84 U/L (23-300); Non-African American GFR(CKD) >90 (>60 ml/min/1.73 sqM); Potassium 4.4 mmol/L (3.5-5.1); Sodium 138 mmol/L (137-145); Total Bilirubin 0.9 mg/dL (0.2-1.3); Total Protein 7.6 g/dL (6.3-8.2)
[2024-10-10 13:19] LABS: Influenza A Not Detected (Not Detectd); Influenza B Not Detected (Not Detectd); RSV Not Detected (Not Detectd)
--- NOTE | 2024-10-10 14:41 | CT ---
EXAMINATION TYPE: CT abdomen pelvis w con DATE OF EXAM: 10/10/2024 COMPARISON: 08/28/2024 CLINICAL INDICATION: Male, 59 years old with history of severe abdominal pain; PHH, Severe abdominal pain TECHNIQUE: Performed without Oral Contrast and with IV Contrast, patient injected with 100 ml mL of Isovue 300. CT DLP: 734.[address] CTDI: mGy Automated exposure control for dose reduction was used. FINDINGS: The lung bases are clear. The gallbladder is normal without distention, wall thickening, pericholecystic fluid or gallstones. T here is no biliary ductal dilatation. There is no focal mass or organomegaly involving the liver, pancreas, spleen or adrenal glands. There is no solid renal mass or hydronephrosis and there is homogeneous contrast enhancement of the r enal parenchyma. The caliber the abdominal aorta is normal is no retroperitoneal adenopathy or hemorr isabelle. There is marked edematous wall thickening of the duodenum consistent with acute duodenitis. There is no evidence of free air to suggest ulcer. There is no bowel obstruction. There is no intraperitoneal fluid No pelvic mass, free fluid, abscess or adenopathy. The osseous structures and soft tissues are intact. IMPRESSION: Marked inflammatory changes of the duodenum consistent with acute duodenitis. [facility], , 10/10/2024 2:39 PM
[2024-10-10] MEDS: PANTOPRAZOLE 40 MG/10 ML VIAL IVP STA (15:00)
--- NOTE | 2024-10-10 15:42 | ED ---
Medical Decision Making - Lab Data Result diagrams: 10/10/24 12:36 10/10/24 12:36 Lab Results 10/10/24 10/10/24 10/10/24 Range/Units 12:36 12:36 12:36 WBC 8.98 (4.50-10.00) 10*3/uL RBC 5.10 (4.40-5.60) 10*6/uL Hgb 14.9 (13.0-17.0) g/dL Hct 43.2 (39.6-50.0) % MCV 84.7 (80.0-97.0) fL MCH 29.2 (27.0-32.0) pg MCHC 34.5 (32.0-37.0) g/dL Plt Count 247 (140-440) 10*3/uL MPV 10.0 (9.5-12.2) fL Immature Gran % (Auto) 0.2 % Neutrophils % 70.3 % Lymphocytes % 22.3 % Monocytes % 5.7 % Eosinophils % 1.2 % Basophils % 0.3 % Immature Gran # 0.02 (0.00-0.04) 10*3/uL Neutrophils # 6.31 (1.80-7.70) 10*3/uL Lymphocytes # 2.00 (0.90-5.00) 10*3/uL Monocytes # 0.51 (0.20-1.00) 10*3/uL Eosinophils # 0.11 (0.04-0.35) 10*3/uL Basophils # 0.03 (0.00-0.10) 10*3/uL Sodium 138 (137-145) mmol/L Potassium 4.4 (3.5-5.1) mmol/L Chloride 103 (98-107) mmol/L Carbon Dioxide 27 (22-30) mmol/L Anion Gap 8 mmol/L BUN 19 (9-20) mg/dL Creatinine 0.82 (0.66-1.25) mg/dL Est GFR (CKD-EPI)AfAm >90 (>60 ml/min/1.73 sqM) Est GFR (CKD-EPI)NonAf >90 (>60 ml/min/1.73 sqM) Glucose 104 H (74-99) mg/dL Plasma Lactic Acid Thor 1.2 (0.7-2.0) mmol/L Calcium 9.6 (8.4-10.2) mg/dL Total Bilirubin 0.9 (0.2-1.3) mg/dL AST 53 (17-59) U/L ALT 72 H (4-49) U/L Alkaline Phosphatase 90 (38-126) U/L Total Protein 7.6 (6.3-8.2) g/dL Albumin 4.8 (3.5-5.0) g/dL Lipase 84 (23-300) U/L Influenza Type A (PCR) (Not Detectd) Influenza Type B (PCR) (Not Detectd) RSV (PCR) (Not Detectd) SARS-CoV-2 (PCR) (Not Detectd) 10/10/24 Range/Units 12:36 WBC (4.50-10.00) 10*3/uL RBC (4.40-5.60) 10*6/uL Hgb (13.0-17.0) g/dL Hct (39.6-50.0) % MCV (80.0-97.0) fL MCH (27.0-32.0) pg MCHC (32.0-37.0) g/dL Plt Count (140-440) 10*3/uL MPV (9.5-12.2) fL Immature Gran % (Auto) % Neutrophils % % Lymphocytes % % Monocytes % % Eosinophils % % Basophils % % Immature Gran # (0.00-0.04) 10*3/uL Neutrophils # (1.80-7.70) 10*3/uL Lymphocytes # (0.90-5.00) 10*3/uL Monocytes # (0.20-1.00) 10*3/uL Eosinophils # (0.04-0.35) 10*3/uL Basophils # (0.00-0.10) 10*3/uL Sodium (137-145) mmol/L Potassium (3.5-5.1) mmol/L Chloride (98-107) mmol/L Carbon Dioxide (22-30) mmol/L Anion Gap mmol/L BUN (9-20) mg/dL Creatinine (0.66-1.25) mg/dL Est GFR (CKD-EPI)AfAm (>60 ml/min/1.73 sqM) Est GFR (CKD-EPI)NonAf (>60 ml/min/1.73 sqM) Glucose (74-99) mg/dL Plasma Lactic Acid Thor (0.7-2.0) mmol/L Calcium (8.4-10.2) mg/dL Total Bilirubin (0.2-1.3) mg/dL AST (17-59) U/L ALT (4-49) U/L Alkaline Phosphatase (38-126) U/L Total Protein (6.3-8.2) g/dL Albumin (3.5-5.0) g/dL Lipase (23-300) U/L Influenza Type A (PCR) Not Detected (Not Detectd) Influenza Type B (PCR) Not Detected (Not Detectd) RSV (PCR) Not Detected (Not Detectd) SARS-CoV-2 (PCR) Not Detected (Not Detectd) Disposition Clinical Impression: Duodenitis Disposition: HOME SELF-CARE Condition: Fair Instructions (If sedation given, give patient instructions): Duodenitis (ED) Prescriptions: Omeprazole [PriLOSEC] 40 mg PO DAILY 24 Days #24 cap Omeprazole [PriLOSEC] 40 mg PO DAILY 21 Days #21 cap Is patient prescribed a controlled substance at d/c from ED?: No Referrals: Lila Hernandez MD [STAFF PHYSICIAN] - 1-2 days
== END 2024-10-10 15:57 | disposition home or self-care (01) ==
LOC: EC 10:38
DX: K29.80 Duodenitis without bleeding (principal); F10.10 Alcohol abuse, uncomplicated; F17.200 Nicotine dependence, unspecified, uncomplicated; Z11.52 Encounter for screening for COVID-19
CPT/HCPCS: 36415; 80053; 83605; 83690; 85025; 87636; 74018; 74177; 99284; 96374; 96375 ×2; 96376; J2270; J2405; Q9967; J2470

== ENCOUNTER 2024-12-20 11:14 | Emergency (ER) | payer OTHER ==
[2024-12-20 11:24] VITALS: RESP 16; TEMP 98
--- NOTE | 2024-12-20 11:44 | ED ---
Skin/Abscess/FB HPI - General Chief complaint: Skin/Abscess/Foreign Body Stated complaint: Rash Time Seen by Provider: 12/20/24 11:26 Source: patient, RN notes reviewed Mode of arrival: ambulatory Limitations: no limitations - History of Present Illness Initial comments: 59-year-old male presenting to emergency room with complaints of a rash to the right forearm. He believes that this rash started approximately 3 to 4 days ago initially started on his distal forearm and is spread proximally and is pruritic. Patient denies use of new soaps, lotions, detergents, foods or medications. He states that he has been whacking outside however denies direct known exposure to poison hannah. He denies difficulty breathing, tongue swelling. Denies known allergies. - Related Data Previous Rx's Medication Instructions Recorded risperiDONE [RisperDAL] 3 mg PO HS 30 Days #30 tablet 09/20/22 Ciprofloxacin HCl [Cipro] 500 mg PO Q12HR #20 tablet 08/28/24 Omeprazole [PriLOSEC] 40 mg PO DAILY 21 Days #21 cap 10/10/24 Omeprazole [PriLOSEC] 40 mg PO DAILY 24 Days #24 cap 10/10/24 Cephalexin [Keflex] 500 mg PO Q6HR #40 cap 12/20/24 Allergies Allergy/AdvReac Type Severity Reaction Status Date / Time No Known Allergies Allergy Verified 12/20/24 11:24 Review of Systems ROS Statement: Those systems with pertinent positive or pertinent negative responses have been documented in the HPI. ROS Other: All systems not noted in ROS Statement are negative. Past Medical History Past Medical History: No Reported History History of Any Multi-Drug Resistant Organisms: None Reported Past Surgical History: No Surgical Hx Reported Past Psychological History: Anxiety, Bipolar, Depression Smoking Status: Current every day smoker Past Alcohol Use History: Daily Past Drug Use History: Marijuana - Past Family History Mother Family Medical History: Hypertension General Exam Limitations: no limitations ENT exam: Present: normal exam, mucous membranes moist Neck exam: Present: normal inspection. Absent: tenderness, meningismus, lymphadenopathy Respiratory exam: Present: normal lung sounds bilaterally. Absent: respiratory distress, wheezes, rales, rhonchi, stridor Cardiovascular Exam: Present: regular rate, normal rhythm, normal heart sounds. Absent: systolic murmur, diastolic murmur, rubs, gallop, clicks GI/Abdominal exam: Present: soft, normal bowel sounds. Absent: distended, tenderness, guarding, rebound, rigid Right Forearm Wrist exam: Present: other (rash of forearm with mild erythema, scabbing and weeping, puritic) Back exam: Present: normal inspection Skin exam: Present: warm, dry, intact, normal color. Absent: rash Course Vital Signs 12/20/24 12/20/24 11:19 12:14 Temperature 98 F 98 F Pulse Rate 76 70 Respiratory 16 16 Rate Blood Pressure 157/99 140/88 O2 Sat by Pulse 98 98 Oximetry Medical Decision Making - Medical Decision Making Was pt. sent in by a medical professional or institution (, SHANW, GRADUATE STUDENT, urgent care, hospital, or fdc...) When possible be specific @ -No Did you speak to anyone other than the patient for history (EMS, parent, family, police, friend...)? What history was obtained from this source @ -No Did you review nursing and triage notes (agree or disagree)? Why? @ -I reviewed and agree with nursing and triage notes Were old charts reviewed (outside hosp., previous admission, EMS record, old EKG, old radiological studies, urgent care reports/EKG's, fdc records)? Report findings @ -No old charts were reviewed Differential Diagnosis (chest pain, altered mental status, abdominal pain women, abdominal pain men, vaginal bleeding, weakness, fever, dyspnea, syncope, headache, dizziness, GI bleed, back pain, seizure, CVA, palpatations, mental health, musculoskeletal)? @ -Contact dermatitis, cellulitis, anaphylaxis, allergic dermatitis, this list is not all inclusive EKG interpreted by me (3pts min.). @ -none X-rays interpreted by me (1pt min.). @ -None done CT interpreted by me (1pt min.). @ -None done U/S interpreted by me (1pt. min.). @ -None done What testing was considered but not performed or refused? (CT, X-rays, U/S, labs)? Why? @ -None What meds were considered but not given or refused? Why? @ -None Did you discuss the management of the patient with other professionals (professionals i.e. , SHAWN, GRADUATE STUDENT, lab, RT, psych nurse, social work assistant, automatic centrifugal station operator, teacher, correctional program officer, rn case manager)? Give summary @ -No Was smoking cessation discussed for >3mins.? @ -No Was critical care preformed (if so, how long)? @ -No Were there social determinants of health that impacted care today? How? (Homelessness, low income, unemployed, alcoholism, drug addiction, transportation, low edu. Level, literacy, decrease access to med. care, penitentiary, rehab)? @ -No Was there de-escalation of care discussed even if they declined (Discuss DNR or withdrawal of care, Hospice)? DNR status @ -No What co-morbidities impacted this encounter? (DM, HTN, Smoking, COPD, CAD, Cancer, CVA, ARF, Chemo, Hep., AIDS, mental health diagnosis, sleep apnea, morbid obesity)? @ -None Was patient admitted / discharged? Hospital course, mention meds given and route, prescriptions, significant lab abnormalities, going to OR and other pertinent info. @ -Discharge. 59-year-old male presenting with a rash to the right forearm. Rash appears to be contact dermatitis/cellulitic in nature and will be provided with antibiotics and topical steroids. Patient has been advised on return parameters if rashes worsen. Recommend follow-up with primary care provider. Case discussed with my attending Dr. Winchester Undiagnosed new problem with uncertain prognosis? @ -No Drug Therapy requiring intensive monitoring for toxicity (Heparin, Nitro, Insulin, Cardizem)? @ -No Were any procedures done? @ -No Diagnosis/symptom? @ -contact dermatitis, cellulitis Acute, or Chronic, or Acute on Chronic? @ -acute Uncomplicated (without systemic symptoms) or Complicated (systemic symptoms)? @ -uncomplicated Side effects of treatment? @ -No Exacerbation, Progression, or Severe Exacerbation? @ -No Poses a threat to life or bodily function? How? (Chest pain, [place], [place], pneumonia, PE, COPD, DKA, ARF, appy, cholecystitis, CVA, Diverticulitis, Homicidal, Suicidal, threat to staff... and all critical care pts) @ -No Disposition Clinical Impression: Dermatitis, Cellulitis Disposition: HOME SELF-CARE Condition: Stable Instructions (If sedation given, give patient instructions): Cellulitis (ED) Additional Instructions: Please return to the Emergency Department if symptoms worsen or any other concerns. Complete full course of antibiotics as prescribed and continue to use topical steroid cream over the affected areas to skin up to 3 times per day for one week. Prescriptions: Cephalexin [Keflex] 500 mg PO Q6HR #40 cap Is patient prescribed a controlled substance at d/c from ED?: No Referrals: None,Stated [Primary Care Provider] - 1-2 days Time of Disposition: 11:44
[2024-12-20] MEDS: cefTRIAXone 1,000 MG VIAL (IM USE) IM STA (11:56)
[2024-12-20] MEDS: TRIAMCINOLONE ACET 0.1% OINTMENT 15 GM TUBE TOPICAL STA (12:05)
[2024-12-20 12:15] VITALS: BP 140/88; PULSE 70
== END 2024-12-20 13:41 | disposition home or self-care (01) ==
LOC: EC 11:14
DX: L03.113 Cellulitis of right upper limb (principal); L25.9 Unspecified contact dermatitis, unspecified cause; F17.200 Nicotine dependence, unspecified, uncomplicated
CPT/HCPCS: 99282; 96372; J0696